=== PATIENT | female | born 1940 | race Hispanic/Latino ===

== ENCOUNTER → 2018-08-12 | Outpatient (CLI) | payer MEDICARE ==
[~2018-08-12] MED LIST: ALEN70TA10 PO; ASPI-555 PO; CALC-1103 PO; CHOL200026 PO; FEXO-58 PO; FISH OIL GUMMIES; GEMF600T5 PO; GRAP50CA5 PO; HYDR12.54 PO; LIDOCAINE 5%; MAGN250T2 PO; METF-444 PO; MULT-1258 PO; NIAC500T22 PO; OMEP20CA10 PO; OXYB10TA4 PO; UBID100C45 PO; VITA150T PO; VITA400C70 PO; ZINC50TA4 PO
== END | disposition home or self-care (01) ==
LOC: RAH 09:17
PROVIDERS: ATTEND Nurse Practitioner Family
DX: M47.816 Spondylosis without myelopathy or radiculopathy, lumbar region (principal)
CPT/HCPCS: 72100

== ENCOUNTER 2018-11-02 07:30 | Day surgery (SDC) | payer MEDICARE ==
[~2018-11-02] VITALS: Ht 157.5 cm; Wt 64.0 kg
[~2018-11-02 07:30] MED LIST changes: +CRAN500T2 PO; +ENAL10TA PO; +FEXO-23 PO; -FEXO-58 PO; +GABA-529 PO; -GRAP50CA5 PO; -HYDR12.54 PO; +LEVO25TA54 PO; -LIDOCAINE 5%; +OMEG100014 PO; -OXYB10TA4 PO; +PUMP300C PO; +SODIUM CHLORIDE 0.9% 1000ML 1,000 ML IV ONE; -VITA150T PO
[2018-11-02 08:43] VITALS: BP 133/45
[2018-11-02 10:41] VITALS: BP 118/34
[2018-11-02 10:43] VITALS: BP 115/30
[2018-11-02 10:48] VITALS: BP 121/43
[2018-11-02 11:00] VITALS: BP 123/43
== END 2018-11-02 11:10 ==
LOC: DAH 07:30 → SUH 07:30
PROVIDERS: ATTEND Internal Medicine
DX: Z12.11 Encounter for screening for malignant neoplasm of colon (principal); K63.5 Polyp of colon; Z86.010 Personal history of colon polyps; K57.30 Diverticulosis of large intestine without perforation or abscess without bleeding; E11.9 Type 2 diabetes mellitus without complications; E78.5 Hyperlipidemia, unspecified; G47.33 Obstructive sleep apnea (adult) (pediatric); Z80.0 Family history of malignant neoplasm of digestive organs; Z79.899 Other long term (current) drug therapy; Z88.8 Allergy status to other drugs, medicaments and biological substances; Z98.890 Other specified postprocedural states; K64.0 First degree hemorrhoids; K21.9 Gastro-esophageal reflux disease without esophagitis; M81.0 Age-related osteoporosis without current pathological fracture; M54.30 Sciatica, unspecified side; G47.30 Sleep apnea, unspecified; E03.9 Hypothyroidism, unspecified; M19.90 Unspecified osteoarthritis, unspecified site; Z90.710 Acquired absence of both cervix and uterus; Z98.49 Cataract extraction status, unspecified eye; Z79.84 Long term (current) use of oral hypoglycemic drugs
CPT/HCPCS: 45380; 82948 ×2; 88305; 93005; A4606; J7030

== ENCOUNTER → 2019-02-21 | Outpatient (CLI) | payer MEDICARE ==
[~2019-02-21] MED LIST changes: -ASPI-555 PO; -FISH OIL GUMMIES; +OMEP-50 PO; -OMEP20CA10 PO; -SODIUM CHLORIDE 0.9% 1000ML 1,000 ML IV ONE; -UBID100C45 PO
== END | disposition home or self-care (01) ==
LOC: RAH 16:49
PROVIDERS: ATTEND Nurse Practitioner Family
DX: M79.672 Pain in left foot (principal)
CPT/HCPCS: 73630

== ENCOUNTER 2020-07-26 11:13 | Emergency (ER) | payer MEDICARE ==
[~2020-07-26 11:13] MED LIST changes: -ALEN70TA10 PO; +ALEN70TA69 PO; -ENAL10TA PO; +ENAL10TA18 PO; -OMEP-50 PO; +OMEP20CA12 PO; +VITA-164 PO; -VITA400C70 PO; +ZINC50TA15 PO; -ZINC50TA4 PO
[2020-07-26] MEDS ORDERED: FUROSEMIDE 10 MG/ML 2ML VIAL ONE (13:14)
== END 2020-07-26 14:07 | disposition home or self-care (01) ==
LOC: EDH 11:13
DX: S82.002A Unspecified fracture of left patella, initial encounter for closed fracture (principal); E11.9 Type 2 diabetes mellitus without complications; J44.9 Chronic obstructive pulmonary disease, unspecified; E78.00 Pure hypercholesterolemia, unspecified; Z88.1 Allergy status to other antibiotic agents; Z88.7 Allergy status to serum and vaccine; Z91.048 Other nonmedicinal substance allergy status; Z88.8 Allergy status to other drugs, medicaments and biological substances; W18.39XA Other fall on same level, initial encounter; Y93.01 Activity, walking, marching and hiking; Y92.481 Parking lot as the place of occurrence of the external cause; Y99.8 Other external cause status
CPT/HCPCS: 70450; 73562; 99284; J1940